=== PATIENT | female | born 1965 | race African-American/Black ===

== ENCOUNTER 2016-10-16 22:52 | Observation (INO) | payer OTHER, MEDICARE ==
[~2016-10-16] VITALS: Ht 172.7 cm; Wt 63.5 kg
[~2016-10-16 22:52] MED LIST: AMLODIPINE BESY10 M1 PO; ATORVASTATIN CA40 M1 PO; METOPROLOL TART25 M1 PO; NORCO 7.5-3251 EACH PO; PANTOPRAZOLE SO40 M1 PO
--- NOTE | 2016-10-16 23:15 | NUR ---
BIBA FROM HOME (ON HOME HOSPICE) FOR INCREASED LEFT SIDE CHEST/ABD PAIN. PT WITH BREAST CA S/P LEFT MASTECTOMY WITH BRAIN METS. ARRIVES WITH 25MCG FENTANYL PATCH TO LEFT SHOULDER AREA. ALSO C/O SOB, LUNGS CLEAR/DIM BASES, PT HYPERVENTILATING ON ARRIVAL. PT WITH RIGHT SIDE DEFECITS FROM BRAIN METS PER EMS, WITH BASELINE AMS (ALTERNATIVES BETWEEN APPROPRIATE AND SCREAMING PER MEDIC). CARED FOR BY PARENTS/SIBLINGS AT HOME.
[2016-10-16 23:37] LABS: ABSOLUTE BASOPHIL COUNT 0 /CUMM (0.0-0.2); ABSOLUTE EOSINOPHIL COUNT 0 /CUMM (0.0-0.7); ABSOLUTE GRANULOCYTE CT 9.2 /CUMM (1.4-6.5); ABSOLUTE LYMPH COUNT 1.3 /CUMM (1.2-3.4); ABSOLUTE MONOCYTE COUNT 0.3 /CUMM (0.10-0.60); BASOPHIL % 0.1 % (0.0-2.0); EOSINOPHIL % 0.1 % (0-5); HEMATOCRIT 32.2 % (37-47); MEAN CORPUSCULAR HGB 27.8 PG (27.0-31.0); MEAN CORPUSCULAR HGB CONC 32.2 G/DL (33.0-37.0); MEAN CORPUSCULAR VOLUME 86.2 FL (81.0-99.0); MEAN PLATELET VOLUME 7.6 FL (7.4-10.4); PLATELET COUNT 270 /CUMM (130-400); RBC DISTRIBUTION WIDTH 19.3 % (11.5-14.5); RED BLOOD CELL CT 3.74 /CUMM (4.20-5.40); WHITE BLOOD CELL COUNT 10.9 /CUMM (4.8-10.8)
[2016-10-16 23:38] LABS: GRANULOCYTE % 84.6 % (42.2-75.2)
--- NOTE | 2016-10-16 23:43 | NUR ---
RIGHT CHEST PORT ACCESSED WITH 20G 3/4IN NEEDLE. PT SCREAMING IN PAIN INTERMITTANTLY AND HYPERVENTILATING C/O FEELING SOB. PLACED ON 02 NC FOR COMFORT. PT WITH 25MCG FENTANYL PATCH TO LEFT SHOULDER AREA, DENIES ALLERGIES. PT UNABLE TO STATE HOME PAIN MED REGIMEN. D/W DR GEORGE, PT MEDICATED WITH DILAUDID VIA PORT PER MD, PT MUCH MORE RELAXED AFTER MEDS. REMAINS SINUS TACH 120S ON MONITOR, SATS HIGH 90S ON 2L NC. LARGE FAMILY ARRIVING AT BEDSIDE FOR SUPPORT, FAMILY ENC NOT TO MOVE PT IF SHE IS RESTING COMFORTABLY.
--- NOTE | 2016-10-16 23:47 | NUR ---
REPORT TO ONCOMING SHIFT WITH MD ACUNA IN PROGRESS.
--- NOTE | 2016-10-16 23:54 | NUR ---
SEEN BY BLOOD BANK CUSTODIAN
--- NOTE | 2016-10-17 00:46 | RADIOLOGY REPORT ---
EXAMINATION: XR PORTABLE CHEST CLINICAL INFORMATION: Shortness of breath, question pneumonia COMPARISON: None TECHNIQUE: Portable frontal view of the chest was obtained. FINDINGS: Left subclavian port catheter tip lies at the level of the distal SVC. The lungs are hypoinflated. There is opacity throughout the mid to basilar left lung, suspicious for a layering small to moderate pleural effusion and underlying atelectasis versus consolidation. No right lung consolidation is seen. No evidence of pneumothorax. Cardiac size appears within normal limits for technique. No acute osseous findings are seen. IMPRESSION: Small to moderate left pleural effusion with underlying atelectasis versus consolidation.
--- NOTE | 2016-10-17 01:09 | NUR ---
PT MEDICATED WITH 1MG IV DILAUDID PER EMAR. PT ALSO REPOSITIONED FOR COMFORT AT THIS TIME. PT/FAMILY OFFER NO FURTHER REQUESTS.
--- NOTE | 2016-10-17 02:08 | NUR ---
2ND SET OF BLOOD CULTURES DRAWN AND SENT TO LAB.
--- NOTE | 2016-10-17 02:15 | ED CARDIAC/CP/PALPITATIONS ---
History of Present Illness General Chief Complaint: Abdominal Pain/Flank Pain Stated Complaint: BIBA for chest pain and SOB Source: patient, family Exam Limitations: clinical condition, s/p CVA last year, brain mets 2/2 L beast cancer Vital Signs & Intake/Output Vital Signs & Intake/Output Vital Signs Date Time Temp Pulse Resp B/P B/P Pulse O2 O2 Flow FiO2 Mean Ox Delivery Rate 10/17 0239 100.4 125 32 106/77 98 Nasal 2.0L Cannula 10/17 0208 97 Nasal 2.0L Cannula 10/16 2341 97 Nasal 3.0L Cannula 10/16 2257 99.1 114 26 103/75 94 Room Air ED Intake and Output 10/17 0000 10/16 1200 Intake Total Output Total Balance Patient 140 lb Weight Weight Estimated Measurement Method Allergies Coded Allergies: No Known Allergies (10/16/16) Reconcile Medications Amlodipine Besylate 10 MG TABLET 1 TAB PO DAILY HEART (Reported) Atorvastatin Calcium 40 MG TABLET 1 TAB PO DAILY CHOLESTEROL (Reported) Hydrocodone/Acetaminophen ([place] 7.5-325 Tablet) 7.5 MG-325 MG TABLET 1 TAB PO TID PRN pain Metoprolol Tartrate 25 MG TABLET 1 TAB PO BID HEART (Reported) Pantoprazole Sodium 40 MG TABLET.DR 1 TAB PO DAILY GI (Reported) Triage Note: BIBA FROM HOME (ON HOME HOSPICE) FOR INCREASED LEFT SIDE CHEST/ABD PAIN. PT WITH BREAST CA S/P LEFT MASTECTOMY WITH BRAIN METS. ARRIVES WITH 25MCG FENTANYL PATCH TO LEFT SHOULDER AREA. ALSO C/O SOB, LUNGS CLEAR/DIM BASES, PT HYPERVENTILATING ON ARRIVAL. PT WITH RIGHT SIDE DEFECITS FROM BRAIN METS PER EMS, WITH BASELINE AMS (ALTERNATIVES BETWEEN APPROPRIATE AND SCREAMING PER MEDIC). CARED FOR BY PARENTS/SIBLINGS AT HOME. Triage Nurses Notes Reviewed? yes HPI: Patient is a 51-year-old female with a past medical history of CVA 1 year ago, breast cancer with brain and lung metastases currently on home hospice care, and hypertension presenting with shortness of breath. Of note the patient has limited verbal communication and most of the interview was with her primary caretakers which are her parents and several other family members in the room. The family states that the patient began having nonproductive cough and chest pain on Thursday. The patient has been favoring her left side. This was brought up to the visiting nurse who told the family that this was most likely secondary to her cancer. Today the patient did not want to eat dinner. She has very good po intake per family. This is unusual for the patient per family. The patient stated several times that she was unable to breathe. The family also reports that the patient has had subjective fevers, chest pain, and headaches. The family also reports an episode of urinary incontinence 3 weeks ago. They deny any seizures, or tongue biting. The family also has noted increased bowel movements the past couple weeks. Usually she has to use a suppository every 2 days however she's been having 1 bowel movement by herself every day. The family describes the stool as solid, brown, with some mucus intermittently without any blood. The family denies any recent urinary symptoms or abdominal pain. Family denies any sick contacts. The patient lives at home with both her parents who are her primary caretakers. I discussed with the family about power of senior group manager and CODE STATUS. They are still trying to determine who will be the power of senior group manager and her CODE STATUS. They did state that the patient this morning and wanted to be DNR/DNI however they are unsure if she was able to comprehend at the time. (LAURA THOMPSON,BRETT) Past History Travel History Traveled to [place] past 21 day No Medical History Any Pertinent Medical History? see below for history Cardiovascular: hypertension, CVA Cancer(s): breast cancer, breast cancer with mets to brain History of CDIFF: No Surgical History Surgical History: L mastectomy 2010 Psychosocial History What is your primary language [place] Tobacco Use: Quit >30 days ago ETOH Use: denies use Illicit Drug Use: denies illicit drug use Family History Hx Contributory? No (LAURA THOMPSON,BRETT) Review of Systems Review of Systems Constitutional: Denies: chills, fever. Respiratory: Reports: cough, short of breath. Denies: sputum production. Cardiovascular: Reports: chest pain. GI: Reports: see HPI, changes in stool. Denies: abdominal pain, bloody stool. Genitourinary: Denies: dysuria, frequency, hematuria, nocturia. Neurological/Psychological: Reports: headache. (LAURA THOMPSON,BRETT) Review of Systems EENTM: Reports: no symptoms. Musculoskeletal: Reports: no symptoms. Skin: Reports: no symptoms. Hematologic/Endocrine: Reports: no symptoms. Immunologic/Allergic: Reports: see HPI. All Other Systems: Reviewed and Negative (TYREE GEORGE MD) Physical Exam Physical Exam General Appearance: cachetic, lethargic, severe distress Head: atraumatic Eyes: Right: PERRL. Respiratory: diffuse wheezing b/l, reduced breath sounds on L lower lobe, right chest port noted Cardiovascular: tachycardia Peripheral Pulses: 1+ radial (L), 1+ dorsalis pedis (R), 1+ dorsalis pedis (L) Gastrointestinal: normal bowel sounds, soft, non-tender Extremities: right wrist cast. 0/5 right upper and lower extremity strength. 4 out of 5 left upper extremity and left lower extremity strength. Skin: cold extermities Comments: Left eye cataract noted Core Measures ACS in differential dx? Yes Severe Sepsis Present: No Septic Shock Present: No (LAURA THOMPSON,[facility]) Physical Exam Ears, Nose, Throat: normal pharynx, normal ENT inspection Neck: normal inspection, supple, full range of motion Back: normal inspection Neurologic/Psych: awake, alert Reflexes: 2+: bicep (R), bicep (L). Lymphatic: no anterior cervical guadalupe (TYREE GEORGE MD) Progress Differential Diagnosis: AMI, CHF/pulm edema, costochondritis, myocarditis, pericarditis, pneumonia, pneumothorax, pulmonary embolism, PUD/GERD, respiratory failure, sepsis, V-fib/V-Tach, WPW syndrome Diagnostic Imaging: Viewed by Me: Radiology Read. CXR Impression: Small to moderate left pleural effusion with underlying atelectasis versus consolidation. Initial ED EKG: sinus tachycardia (LAURA THOMPSON,BRETT) Plan of Care: Orders Procedure Date/time Status CBC WITHOUT DIFFERENTIAL 10/18 06 Active BASIC ELECTROLYTES PLUS BUN&CR 10/18 06 Active Regular Diet 10/17 B Active [id number] VIEW 10/17 0403 Active TRC EVALUATION (GEN) 10/17 0316 Active OXYGEN SETUP (GEN) 10/17 0316 Active Pathway - chart 10/17 0316 Active House Staff 10/17 0316 Active Code Status 10/[address] in observation 10/17 0236 Active Patient Data 10/17 0150 Active BLOOD CULTURE 10/17 0113 Active OXYGEN SETUP (GEN) 10/17 010 Active Saline Lock 10/17 010 Active Vital Signs 10/17 010 Active Activity/Ambulation 10/17 0102 Active Code Status 10/17 0102 Complete TRC EVALUATION (GEN) 10/17 0012 Active BLOOD CULTURE 10/17 0007 Active US-CHEST 10/17 UNK Active XRY-CHEST XRAY, PA AND LATERAL 10/17 UNK Active VTE Mechanical Prophylaxis 10/17 UNK Active Vital Signs 10/17 UNK Active Intake & Output 10/17 UNK Active TROPONIN LEVEL 10/16 2316 Complete COMPREHENSIVE METABOLIC PANEL 10/17 2315 Complete CBC WITHOUT DIFFERENTIAL 10/17 2315 Complete EKG 10/16 225 Active Current Medications Sig/Toby Start time Last Medication Dose Stop Time Status Admin Atorvastatin Calcium 40 MG 1700 10/17 1700 AC (Lipitor) Amlodipine Besylate 10 MG DAILY 10/17 1000 AC (Norvasc) Enoxaparin Sodium 40 MG DAILY 10/17 1000 AC (Lovenox) Famotidine 20 MG DAILY 10/17 1000 AC (Pepcid) Metoprolol Tartrate 25 MG BID 10/17 1000 AC (Lopressor) Oxycodone HCl 30 MG Q12 10/17 1000 AC (OxyCONTIN) Hydromorphone HCl 1 MG Q3P PRN 10/17 0400 AC (Dilaudid) Polyethylene Glycol 17 GM AT BEDTIME PRN 10/17 0315 AC (Miralax) Senna/Docusate Sodium 1 TAB AT BEDTIME PRN 10/17 0315 AC (Senokot S) Sodium Chloride 1,000 ML .Q20H 10/17 0315 AC (Normal Saline 0.9%) 10/17 2314 Laboratory Tests 10/16/167: Anion Gap 10, Estimated GFR > 60, BUN/Creatinine Ratio 21.7, Glucose 121 H, Calcium 9.1, Total Bilirubin 0.6, AST 15, ALT 30, Alkaline Phosphatase 74, Troponin I < 0.01, Total Protein 6.6, Albumin 3.5, Globulin 3.1, Albumin/ Globulin Ratio 1.1, CBC w Diff NO MAN DIFF REQ, RBC 3.74 L, MCV 86.2, MCH 27.8, RDW 19.3 H, MPV 7.6, Gran % 84.6 H, Lymphocytes % 12.4 L, Monocytes % 2.8, Eosinophils % 0.1, Basophils % 0.1, Absolute Granulocytes 9.2 H, Absolute Lymphocytes 1.3, Absolute Monocytes 0.3, Absolute Eosinophils 0, Absolute Basophils 0, PUBS MCHC 32.2 L Microbiology 10/17 0205 BLOOD: Blood Culture - RECD 10/17 0144 BLOOD: Blood Culture - RECD 10/17 0007 BLOOD: Blood Culture - CAN Cancelled: Cancelled via OE: Per MD Decision Diagnostic Imaging: Viewed by Me: Radiology Read. Discussed w/RAD: Radiology Read. CXR Impression: Small to moderate left pleural effusion with underlying atelectasis versus consolidation. Comments: Hospitalization status changed due to hospice care. (TYREE GEORGE MD) Departure Departure Disposition: STILL A PATIENT Condition: Stable Referrals: CARRILLO RAMESH MD (PCP/Family) Departure Forms: Customer Survey General Discharge Information Observation Note Spoke With: MOE HO MD Physician Advisor Notified: SELENA THOMPSON,EMILY [facility] Patient In: Non-ED OBS Care Area Rationale for Observation: My rational for observation is as follows [chest pain, tachycardia requiring monitoring, sob requiring O2 sat monitoring, decreased PO intake on home hospice ]. (BRETT SANCHEZ MD) Departure Clinical Impression Primary Impression: Pneumonia Secondary Impressions: Pleural effusion Admission Note Spoke With: MOE HO MD Documentation of Exam: Documentation of any treatments & extenuating circumstances including Concerns Regarding Discharge (functional status, medication knowledge or non-compliance, living conditions, etc.) that warrant an admission rather than observation: Supplemental oxygen IV hydration IV antibiotics IV analgesia medication adjustment oncology evaluation continuing care discharge planning end-of-life planning Resident Co-Sign Statement Statement: ED Attending supervision documentation- x I saw and evaluated the patient. I have also reviewed all the pertinent lab results and diagnostic results. I agree with the findings and the plan of care as documented in the Resident's documentation. [] I have reviewed the ED Record and agree with the Resident's documentation. [] Additions or exceptions (if any) to the Resident's note and plan are summarized below: [] (TYREE GEORGE MD) Critical Care Note Critical Care Note Critical Care Time: non-applicable (BRETT SANCHEZ MD)
--- NOTE | 2016-10-17 03:02 | History & Physical ---
AMANDA THOMPSON,EMILY 10/17/16 0301: General Information and HPI MD Statement: I have seen and personally examined ANASTACIA ALVAREZ and documented this H&P. The patient is a 51 year old F who presented with a patient stated chief complaint of [L sided chest pain, SOB, and abd pain]. Source of Information: patient, family Exam Limitations: pt is unable to speak beyond yes/no and very short phrases, obtained the majority of hx from the pt's mother History of Present Illness: pt is a 51 yo F c/o of a 4 day hx of L sided chest pain and abd pain. She has a pmh significant for breast cancer with mets to the brain, CVA, HTN, HLD. She is on home hospice care. She was brought in due to SOB, and complaints of worsening chest pain and abd pain. She was coughin on thursday (10/13/16), but this has resolved. She denies palpitation, lightheadidness, diziness, diarrhea. She has had urinary incontinence for the past few weeks as well. Her las bowel movement was yesterday and it was nonbloody. Both the pt and the family have expressed a desire for no aggressive work ups and treatment Allergies/Medications Allergies: Coded Allergies: No Known Allergies (10/16/16) Home Med list Amlodipine Besylate 10 MG TABLET 1 TAB PO DAILY HEART (Reported) Atorvastatin Calcium 40 MG TABLET 1 TAB PO DAILY CHOLESTEROL (Reported) Hydrocodone/Acetaminophen ([place] 7.5-325 Tablet) 7.5 MG-325 MG TABLET 1 TAB PO TID PRN pain Metoprolol Tartrate 25 MG TABLET 1 TAB PO BID HEART (Reported) Pantoprazole Sodium 40 MG TABLET. 1 TAB PO DAILY GI (Reported) Observation Initial Note - I have personally examined ANASTACIA ALVAREZ on 10/17/16 at 0643. The disposition of ANASTACIA ALVAREZ is uncertain at this time and before a determination can be made, she requires a period of observation for the following reasons [] Past History Travel History Traveled to [place] past 21 day No Medical History Cardiovascular: hypertension, CVA Cancer(s): breast cancer, breast cancer with mets to brain History of CDIFF: No Surgical History Surgical History: L mastectomy 2010 Past Family/Social History Family History Relations & Conditions if any Relation not specified for: FH: diabetes mellitus FH: hypertension Psychosocial History Where do you live? Home Who Do You Live With? parent Services at Home: home hospice Smoking Status: Former Smoker ETOH Use: denies use Illicit Drug Use: denies illicit drug use Living Will? no Power of Deputy Brand Inspector/HCP? no Functional Ability ADLs Needs Assist: dressing, eating, toileting, bathing. Ambulation: non-ambulatory IADLs Needs Assist: shopping, housework, finances, food prep, telephone, transportation, medication admin. Review of Systems Review of Systems Constitutional: Denies: chills, diaphoresis, fever. Cardiovascular: Reports: chest pain. Denies: palpitations. Respiratory: Reports: cough, short of breath. Denies: sputum production, wheezing. GI: Reports: abdominal pain. Denies: diarrhea, bloody stool, vomiting. Genitourinary: Reports: see HPI. Denies: dysuria. Exam & Diagnostic Data Last 24 Hrs of Vital Signs/I&O Vital Signs Date Time Temp Pulse Resp B/P B/P Pulse O2 O2 Flow FiO2 Mean Ox Delivery Rate 10/17 0522 99.6 122 26 100/70 100 10/17 0430 98 Nasal 2.0L Cannula 10/17 0239 100.4 125 32 106/77 98 Nasal 2.0L Cannula 10/17 0208 97 Nasal 2.0L Cannula 10/16 2341 97 Nasal 3.0L Cannula 10/16 2257 99.1 114 26 103/75 94 Room Air Intake & Output 10/17 0800 10/17 0000 10/16 1600 Intake Total 1250 Output Total Balance 1250 Intake, IV 1250 Number 0 Bowel Movements Patient 140 lb 140 lb Weight Weight Estimated Measurement Method Physical Exam General Appearance Alert, pt does not communicate well due to stroke, can answer yes or no, and at times speak in short phrases Skin No Rashes, No Breakdown, No Significant Lesion Skin Temp/Moisture Exam: Warm/Dry Sepsis Skin Exam (color): Normal for Ethnicity HEENT Atraumatic, Mucous Membr. moist/pink, pt has extropia of the R eye due to the stroke, though when testing for EOM, pt appeared to have full range of motion of both eyes Neck Supple, No LAD Cardiovascular Normal S1, Normal S2, No Murmurs, tachycardic at 127 Lungs Clear to Auscultation, decreased breath sounds of the L lateral lung field Abdomen Normal Bowel Sounds, Soft, No Masses, TTP diffusely Neurological R sided weakness and decreased sensation 2/2 CVA Extremities No Clubbing, No Cyanosis, No Edema, Normal Pulses, No Tenderness/ Swelling Vascular Normal Pulses, Pulses Symmetrical Sepsis Peripheral Pulse Location: Dorsalis Pedis Sepsis Peripheral Pulse Exam: Normal Sepsis Cap Refill Exam: <2 Sec Last 24 Hrs of Labs/González: Laboratory Tests 10/16/16 2327: Anion Gap 10, Estimated GFR > 60, BUN/Creatinine Ratio 21.7, Glucose 121 H, Calcium 9.1, Total Bilirubin 0.6, AST 15, ALT 30, Alkaline Phosphatase 74, Troponin I < 0.01, Total Protein 6.6, Albumin 3.5, Globulin 3.1, Albumin/ Globulin Ratio 1.1, CBC w Diff NO MAN DIFF REQ, RBC 3.74 L, MCV 86.2, MCH 27.8, RDW 19.3 H, MPV 7.6, Gran % 84.6 H, Lymphocytes % 12.4 L, Monocytes % 2.8, Eosinophils % 0.1, Basophils % 0.1, Absolute Granulocytes 9.2 H, Absolute Lymphocytes 1.3, Absolute Monocytes 0.3, Absolute Eosinophils 0, Absolute Basophils 0, PUBS MCHC 32.2 L Microbiology 10/17 720 URINE ROUT: Legionella Antigen - ORD 10/17 720 URINE ROUT: Urine Culture - ORD 10/17 0205 BLOOD: Blood Culture - RECD 10/17 0144 BLOOD: Blood Culture - RECD 10/17 0007 BLOOD: Blood Culture - CAN Cancelled: Cancelled via OE: Per MD Decision Diagnostic Data CXR Results Small to moderate left pleural effusion with underlying atelectasis versus consolidation. Other Results XR ABDOMEN Significantly limited exam due to patient motion artifact. No gross evidence of free air. Assessment/Plan Assessment: pt is a 51 yo F c/o of a 4 day hx of L sided chest pain and abd pain. She has a pmh significant for breast cancer with mets to the brain, CVA, HTN, HLD. She is on home hospice care. She was brought in due to SOB, and complaints of worsening chest pain and abd pain. She was coughin on thursday (10/13/16), but this has resolved. She denies palpitation, lightheadidness, diziness, diarrhea. She has had urinary incontinence for the past few weeks as well. Her las bowel movement was yesterday and it was nonbloody. Both the pt and the family have expressed a desire for no aggressive work ups and treatment. #abdominal pain abdominal xray does not show free air, but was a limited exam -observation in gen med - bowel regimen - pain management #chest pain xray shows pleural effusion with underlying atelectasis versus consolidation. - pulmonary consult - fu L chest US #DVT prophylaxis - lovenox #code status - DNR/DNI - further discussion needed with family about goals of care As Ranked By This Provider Problem List: 1. Abdominal pain 2. Pleural effusion Core Measures/Miscellaneous Acute Coronary Syndrome ACS Diagnosis: No Cerebrovascular Accident CVA/TIA Diagnosis: No Congestive Heart Failure CHF Diagnosis: No VTE (View Protocol) VTE Risk Factors: Age > 40, Cancer/chemo/oth therapy No Mech VTE prophylaxis d/t: No contraindications No VTE Pharm Prophylaxis d/t: No contraindications VTE Diagnosis: No VTE Type: NONE VTE Confirmed by (Test): NONE Sepsis (View Protocol) Severe Sepsis Present: No Septic Shock Septic Shock Present: No Miscellaneous Documentation Attending Case Discussed With: MOE HO MD Primary Care Physician: CARRILLO RAMESH MD Patient sees these Specialists NA Level of Patient Care: General Medicine MOE HO MD 10/17/16 0351: Observation Initial Note - I have personally examined ANASTACIA ALVAREZ on 10/17/16 at 0355. The disposition of ANASTACIA ALVAREZ is uncertain at this time and before a determination can be made, she requires a period of observation for the following reasons: stage IV cancer with pain, plan is to control pain and rule out acute causes. Should pain be controlled and no further interventions patient can be discharged back home with home hospice. Attending MD Review Statement Attending Statement Attending MD Statement: examined this patient, discuss w/resident/PA/QUALITY ASSURANCE MONITOR BODY, agreed w/resident/PA/QUALITY ASSURANCE MONITOR BODY, reviewed EMR data (avail) Attending Assessment/Plan: 51F PMH breast cancer originally diagnosed 2011 s/p mastectomy, with recurrence in contralateral breast and metastasis to brain s/p brain radiation over a year ago and CVA with residual right sided weakness and difficulty speaking 1 year ago, recently placed on home hospice with [facility], with 4-5 days of worsening shortness of breath at rest and severe left sided chest wall and abdominal pain. Patient is able to communicate mostly through yes/no questions and short phrases, family is at bedside to give additional history. Patient has been managed by home hospice nurse who visited every day this week. Family brought patient to hospital as her pain was not controlled and they were worried about her progressive shortness of breath. Patient reports that she is in pain and just wants to sleep. Had a cough a few days ago but this resolved. Afebrile, normal WBC, CXR shows small left sided pleural effusion. Abdomen is mildly tender but not acute, no guarding or rebound tenderness. Had normal BM yesterday. Initially tachycardic and hypertensive, received Dilaudid in ED and this resolved. Patient now comfortable and sleeping after Dilaudid 1mg + 1mg + 2mg IV in ED. Patient had previously agreed to being DNR/DNI. She does want testing though if it will help with her pain and discomfort. Family would like to minimize invasive testing and needlesticks if possible. Plan - Observation in general medicine - Continue home Oxycontin - Dilaudid 1mg q3h PRN - Bowel regimen to prevent constipation - Pulmonary consult - Left chest ultrasound to evaluate pleural effusion for potential thoracentesis - Abdominal x-ray to evaluate for free air - Continue home medications - Continue goals of care discussion - DVT PPx SONYA THOMPSON,DALY 10/17/16 1103: Resident Review Statement Resident Statement: examined this patient, discussed with chief of internal medicine, agreed with chief of internal medicine, reviewed EMR data (avail), discussed with nursing, reviewed images Other Findings: 51 yo F with past medical history of metastatic breast cancer currently on hospice care, CVA 1 year ago, hypertension, presented to the ED with vague complaints of shortness of breath, chest pain, abdominal pain, poor oral intake, and subjective fever, headache. Much of the history was provided by the family members, and the patient spoke very little when she did. Patient otherwise was in her baseline, but started gradually developing symptoms since Thursday. Family members deny chills, seizures, coughing, changes in bladder habit. Has been having better bowel movements recently. She was brought to the ED for workup of her symptoms and treatment accordingly. She was found to be tachycardic, but rest of her vitals were within normal limits. Her chest x-ray shows presence of effusion, questionable pneumonia. On examination, she has tight, tender abdomen , and move his chronic facial deviation. It is difficult to give one single diagnosis to explain everything at this point of time. She is being observed in general medical floor for the following issues: #Shortness of breath, chest pain: We are not convinced yet that this could be pneumonia, but this will require follow up. CXR had shown effusion, that needs to be evaluated, so USG of chest for evaluation has been ordered. Pulmonary consultation to be placed in AM. #Abdominal and GI symptoms: For the findings slightly rigid abdominal wall on palpation, pain, AXR has been placed to rule out viscous perforation. Bowel regimen in place, and adequate pain management. #Need to discuss expectations and plans of care with the patient, and family members in AM. #Adequate painmanagement with IV opiates as necessary #Diet: Regular diet #DVT ppx: Lovenox #Code status: DNR/DNI in this admission, but is at home hospice service prior coming to the hospital
--- NOTE | 2016-10-17 03:30 | NUR ---
PT MEDICATED AT 0300 WITH 2MG IV DILAUDID FOR LEFT CHEST WALL PAIN. 0330 PT SLEEPING. WCTM
--- NOTE | 2016-10-17 04:41 | RADIOLOGY REPORT ---
EXAMINATION: XR ABDOMEN CLINICAL INDICATION: Guarding and pain over abdomen, assess for free air COMPARISON: Chest x-ray from earlier today TECHNIQUE: AP upright view of the abdomen. FINDINGS: Assessment is significantly limited due to patient motion artifact. No gross evidence for intra-abdominal free air. Moderate stool is seen in the colon, with a nonspecific bowel gas pattern. There is redemonstrated opacification at the left lung base. Right subclavian port catheter appears in stable position compared with recent chest x-ray. IMPRESSION: Significantly limited exam due to patient motion artifact. No gross evidence of free air.
--- NOTE | 2016-10-17 05:00 | NUR ---
LATE ENTRY NURSING NOTE: PATIENT ARRIVED TO FLOOR FROM ED VIA STRETCHER AT 0430 AND SETTLED INTO BED, MOTHER/AUTO PARTS HANDLER JUSTIN AT BED SIDE. ORIENTED TO ROOM, STAFF, CALL LIGHT. A&OX3, SPEECH IS SLOW BUT CLEAR. SOB AT REST ON 2L NC. VS BP 100/70 HR 122 T 99.6 RR 26 O2 SAT 100% ON ROOM AIR. C/O 10/10 PAIN IN LEFT CHEST AND ABDOMEN. MD KAUFFMAN AWARE OF ABOVE. PATIENT MEDICATED FOR PAIN PER EMAR, IVF RUNNING. ALL NEEDS IN REACH, SAFETY MAINTAINED, BED ALARM IN PLACE. WILL CONTINUE TO MONITOR.
[2016-10-17 05:22] VITALS: BP 100/70
--- NOTE | 2016-10-17 10:39 | ULTRASOUND REPORT ---
EXAMINATION: US PLEURAL EFFUSION CLINICAL INFORMATION: Evaluate for pleural effusion. Worsening dyspnea and increasing effusion on radiograph. COMPARISON: Chest radiograph 10/17/2016 TECHNIQUE: Ultrasound images were obtained of the left chest FINDINGS: Pleural fluid is seen, insufficient in volume for safe ultrasound-guided thoracentesis. IMPRESSION: Insufficient fluid for safe ultrasound-guided thoracentesis.
--- NOTE | 2016-10-17 15:10 | PN- Housestaff ---
See Addendum Subjective Follow-up For: Abdominal pain Left-sided chest pain Subjective: Patient is not able to give much history. Patient is stable. Vitals are within normal limits. Review of Systems Constitutional: Reports: see HPI. EENTM: Reports: no symptoms. Cardiovascular: Reports: no symptoms. Respiratory: Reports: cough, short of breath. Gastrointestinal: Reports: abdominal pain. Genitourinary: Reports: no symptoms. Musculoskeletal: Reports: no symptoms. Skin: Reports: no symptoms. Neurological/Psychological: Reports: no symptoms. Hematologic/Endocrine: Reports: no symptoms. Immunologic/Allergic: Reports: no symptoms. Objective Last 24 Hrs of Vital Signs/I&O Vital Signs Date Time Temp Pulse Resp B/P B/P Pulse O2 O2 Flow FiO2 Mean Ox Delivery Rate 10/17 1714 98 Nasal 2.0L Cannula 10/17 1051 100/54 10/17 1051 100/54 10/17 0855 Nasal 3.0L Cannula 10/17 0800 Nasal 2.0L Cannula 10/17 0522 99.6 122 26 100/70 100 10/17 0430 98 Nasal 2.0L Cannula 10/17 0239 100.4 125 32 106/77 98 Nasal 2.0L Cannula 10/17 0208 97 Nasal 2.0L Cannula 10/16 2341 97 Nasal 3.0L Cannula 10/16 2257 99.1 114 26 103/75 94 Room Air Intake & Output 10/17 1600 10/17 0800 10/17 0000 Intake Total 450 1630 Output Total Balance 450 1630 Intake, IV 350 1390 Intake, Oral 100 240 Number 0 Bowel Movements Patient 140 lb 140 lb Weight Weight Estimated Measurement Method Physical Exam General Appearance: Alert, Cooperative Skin: No Rashes, No Breakdown Sepsis Skin Exam (color): Normal for Ethnicity Cardiovascular: Normal S1, Normal S2, No Murmurs Lungs: Clear to Auscultation, decreased breath sounds on the left lower lung field. Abdomen: Normal Bowel Sounds, Soft, No Hepatospenomegaly, No Masses, diffuse tenderness to palpation. Current Medications: Current Medications Sig/Toby Start time Last Medication Dose Route Stop Time Status Admin Acetaminophen 650 MG Q6P PRN 10/17 0315 DC PO Albuterol Sulfate 3 ML Q4-6 PRN PRN 10/17 1715 AC 10/17 INH 1712 Albuterol Sulfate 3 ML ONCE ONE 10/17 0015 DC INH 10/17 0016 Amlodipine Besylate 10 MG DAILY 10/17 1000 AC PO Atorvastatin Calcium 40 MG 1700 10/17 1700 AC PO Azithromycin 500 MG ONCE ONE 10/17 0130 DC 10/17 Sodium Chloride 250 ML IV 10/17 0229 0230 Ceftriaxone Sodium 0 .STK-MED ONE 10/17 0221 DC .ROUTE Ceftriaxone Sodium 1,000 MG ONCE ONE 10/17 0115 DC 10/17 IV 10/17 0116 0230 Enoxaparin Sodium 40 MG DAILY 10/17 1000 AC SC Famotidine 20 MG DAILY 10/17 1000 AC 10/17 PO 1051 Hydromorphone HCl 1 MG Q3P PRN 10/17 0400 AC 10/17 IV 1507 Hydromorphone HCl 2 MG ONCE PRN 10/17 0315 DC 10/17 IV 0309 Hydromorphone HCl 0 .STK-MED ONE 10/17 0312 DC .ROUTE Hydromorphone HCl 0 .STK-MED ONE 10/17 0108 DC .ROUTE Hydromorphone HCl 1 MG ONCE ONE 10/17 0100 DC 10/17 IV 10/17 0101 0110 Hydromorphone HCl 1 MG ONCE ONE 10/16 2330 DC 10/16 IV 10/16 2331 2335 Hydromorphone HCl 0 .STK-MED ONE 10/16 2328 DC .ROUTE Ipratropium [place] 2.5 ML ONCE ONE 10/17 0015 DC 10/17 INH 10/17 0016 0208 Lorazepam 1 MG Q3P PRN 10/17 1745 AC IV Metoprolol Tartrate 25 MG BID 10/17 1000 AC PO Morphine Sulfate 2 MG Q6P PRN 10/17 1745 AC 10/17 IV 1745 Morphine Sulfate 1 MG Q4P PRN 10/17 0315 DC IV Morphine Sulfate 2 MG Q4P PRN 10/17 0315 DC IV Oxycodone HCl 30 MG Q12 10/17 1000 DC PO Oxycodone HCl 30 MG 0600,1800 10/17 0800 AC 10/17 PO 1744 Polyethylene Glycol 17 GM AT BEDTIME PRN 10/17 0315 AC PO Senna/Docusate Sodium 1 TAB AT BEDTIME PRN 10/17 0315 AC PO Sodium Chloride 1,000 ML .Q20H 10/17 0315 AC 10/17 IV 10/17 2314 0457 Sodium Chloride 1,000 ML BOLUS ONE 10/17 0215 DC 10/17 IV 10/17 0414 0236 Assessment/Plan Assessment: pt is a 51 yo F c/o of a 4 day hx of L sided chest pain and abd pain. She has a pmh significant for breast cancer with mets to the brain, CVA, HTN, HLD. She is on home hospice care. She was brought in due to SOB, and complaints of worsening chest pain and abd pain. She was coughin on thursday (10/13/16), but this has resolved. She denies palpitation, lightheadidness, diziness, diarrhea. She has had urinary incontinence for the past few weeks as well. Her las bowel movement was yesterday and it was nonbloody. Both the pt and the family have expressed a desire for no aggressive work ups and treatment. Assessment and Plan #abdominal pain abdominal xray does not show free air, but was a limited exam due to patient motion artifact. - bowel regimen - pain management #chest pain xray shows pleural effusion with underlying atelectasis versus consolidation. - pulmonary consult - chest US. Chest XRAY showed mild pleural effusion. US was done to evaluate pleural effusion for thoracocentesis. IMPRESSION: Insufficient fluid for safe ultrasound-guided thoracentesis. #DVT prophylaxis - lovenox #code status - DNR/DNI Need to discuss with family regarding inpatient hospice care. Problem List: 1. Abdominal pain 2. Pleural effusion Pain Ratin Pain Location: Chest and abdomen Pain Goal: Remain pain free Pain Plan: Pain pathway Tomorrow's Labs & Rationales: None
[2016-10-17 23:08] VITALS: BP 92/62
[2016-10-18 06:00] LABS: ABSOLUTE BASOPHIL COUNT 0 /CUMM (0.0-0.2); ABSOLUTE EOSINOPHIL COUNT 0 /CUMM (0.0-0.7); ABSOLUTE GRANULOCYTE CT 10.4 /CUMM (1.4-6.5); ABSOLUTE LYMPH COUNT 0.7 /CUMM (1.2-3.4); ABSOLUTE MONOCYTE COUNT 0.6 /CUMM (0.10-0.60); BASOPHIL % 0.1 % (0.0-2.0); EOSINOPHIL % 0.3 % (0-5); GRANULOCYTE % 88.5 % (42.2-75.2); MEAN CORPUSCULAR HGB 28.1 PG (27.0-31.0); MEAN CORPUSCULAR HGB CONC 32.6 G/DL (33.0-37.0); MEAN CORPUSCULAR VOLUME 86.2 FL (81.0-99.0); MEAN PLATELET VOLUME 7.3 FL (7.4-10.4); PLATELET COUNT 247 /CUMM (130-400); RBC DISTRIBUTION WIDTH 19.6 % (11.5-14.5); RED BLOOD CELL CT 3.05 /CUMM (4.20-5.40)
[2016-10-18 06:07] LABS: HEMATOCRIT 26.3 % (37-47)
[2016-10-18 06:31] LABS: WHITE BLOOD CELL COUNT 11.8 /CUMM (4.8-10.8)
[2016-10-18 07:31] VITALS: BP 96/68
--- NOTE | 2016-10-18 07:41 | PN- Housestaff ---
MARIAH THOMPSON,[facility] 10/18/16 0740: Subjective Follow-up For: Abdominal pain Left-sided chest pain Subjective: Patient is not able to give much history. Patient is stable. Vitals are within normal limits. Review of Systems Constitutional: Reports: no symptoms. EENTM: Reports: no symptoms. Cardiovascular: Reports: no symptoms. Respiratory: Reports: see HPI. Gastrointestinal: Reports: see HPI. Genitourinary: Reports: no symptoms. Musculoskeletal: Reports: no symptoms. Skin: Reports: no symptoms. Neurological/Psychological: Reports: no symptoms. Hematologic/Endocrine: Reports: no symptoms. Immunologic/Allergic: Reports: no symptoms. Objective Last 24 Hrs of Vital Signs/I&O Vital Signs Date Time Temp Pulse Resp B/P B/P Pulse O2 O2 Flow FiO2 Mean Ox Delivery Rate 10/18 1602 98.7 104 20 100/60 97 10/18 1218 95 Nasal 2.0L Cannula 10/18 0834 100 96/68 10/18 0834 100 96/68 10/18 0800 Nasal 2.0L Cannula 10/18 0731 99.8 100 18 96/68 97 Room Air 10/18 0000 97 Nasal 2.0L Cannula 10/17 2308 98.3 110 24 92/62 97 Nasal Cannula 10/17 2157 102 98/70 Intake & Output 10/18 1600 10/18 0800 10/18 0000 Intake Total 120 250 300 Output Total 0 Balance 120 250 300 Intake, IV 200 200 Intake, Oral 120 50 100 Number 0 Bowel Movements Output, Urine 0 Physical Exam General Appearance: Alert, Oriented X3, Cooperative Other Physical Findings: Skin: No Rashes, No Breakdown Sepsis Skin Exam (color): Normal for Ethnicity Cardiovascular: Normal S1, Normal S2, No Murmurs Lungs: Clear to Auscultation, decreased breath sounds on the left lower lung field. Abdomen: Normal Bowel Sounds, Soft, No Hepatospenomegaly, No Masses, diffuse tenderness to palpation. Assessment/Plan Assessment: pt is a 51 yo F c/o of a 4 day hx of L sided chest pain and abd pain. She has a pmh significant for breast cancer with mets to the brain, CVA, HTN, HLD. She is on home hospice care. She was brought in due to SOB, and complaints of worsening chest pain and abd pain. She was coughin on thursday (10/13/16), but this has resolved. She denies palpitation, lightheadidness, diziness, diarrhea. She has had urinary incontinence for the past few weeks as well. Her las bowel movement was yesterday and it was nonbloody. Both the pt and the family have expressed a desire for no aggressive work ups and treatment. Assessment and Plan #abdominal pain abdominal xray does not show free air, but was a limited exam due to patient motion artifact. - bowel regimen - pain management #chest pain xray shows pleural effusion with underlying atelectasis versus consolidation. - pulmonary consult - chest US. Chest XRAY showed mild pleural effusion. US was done to evaluate pleural effusion for thoracocentesis. IMPRESSION: Insufficient fluid for safe ultrasound-guided thoracentesis. #DVT prophylaxis - lovenox #code status - DNR/DNI Patient's status was changed from comfort care to inpatient hospice care today. Problem List: 1. Abdominal pain Pain Ratin Pain Location: Abdomen Pain Goal: Remain pain free Pain Plan: Pain pathway Tomorrow's Labs & Rationales: None JEISON THOMPSON,AMIR 10/18/16 1355: Attending MD Review Statement Attending Statement Attending MD Statement: examined this patient, discuss w/resident/PA/MEDICAL DRIVER, agreed w/resident/PA/MEDICAL DRIVER, discussed with family, reviewed EMR data (avail), discussed with nursing Attending Assessment/Plan: Awaiting inpatient Hospice evaluation.
[2016-10-18 16:02] VITALS: BP 100/60
[2016-10-20] MEDS ORDERED: AMBIEN5 M1 PO (10:33)
== END 2016-10-18 17:15 | disposition hospice, home (50) ==
LOC: ERH 22:52 → ERHI 10-17 01:02 → 2NB 10-17 01:02 → 2NA 10-17 01:02 → ENRESERV 10-17 03:37 → 2NB 10-17 04:24 → 2NA 10-17 19:37
PROVIDERS: Student in an Organized Health Care Education/Training Program; ADMIT Internal Medicine
DX: C50.919 Malignant neoplasm of unspecified site of unspecified female breast (principal); Z51.5 Encounter for palliative care; C79.31 Secondary malignant neoplasm of brain; R07.9 Chest pain, unspecified; R06.00 Dyspnea, unspecified; Z86.73 Personal history of transient ischemic attack (TIA), and cerebral infarction without residual deficits; I10 Essential (primary) hypertension; F41.9 Anxiety disorder, unspecified; R27.0 Ataxia, unspecified; E78.5 Hyperlipidemia, unspecified; Z87.891 Personal history of nicotine dependence
CPT/HCPCS: 1263; 1328; 1530; 1748; 87075; 74000; 82436; 87040; 87086; 87449; 93005; 93010; 96372; 96374; 96375; 96376; G0378; J0456; J0696; J1650; J7040